=== PATIENT | female | born 1950 ===

== ENCOUNTER → 2023-07-22 12:38 | Outpatient (BNVA) | payer MEDICARE, MEDICAID, SELFPAY | PROVIDERS: Family Provider Family Medicine; PCP Family Medicine; Referring Provider Registered Nurse; Visit Provider Internal Medicine | DX: R07.9 Chest pain, unspecified (principal) | CPT/HCPCS: 93005; 99204 ==

== ENCOUNTER 2023-08-19 15:04 | Outpatient (CLI) | payer MEDICARE, MEDICAID, SELFPAY ==
--- NOTE | 2023-08-19 15:10 | USCV_ITS ---
Bernie Carlos Age: 72 Gender: F : 1950 Exam Date: 08/19/2023 15:19 Ordering Phys: Forrest Guy M.D ([email or web address]) Technologist: DILIP Exam Location: [facility] – [place] Indication: SOB BP: / HR: 87 Rhythm: Sinus Technical Quality: Poor secondary to COPD MEASUREMENTS (Male / Female) Normal Values 2D ECHO LV Diastolic Diameter PLAX 3.4 cm 4.2 - 5.9 / 3.9 - 5.3 cm LV Systolic Diameter PLAX 2.5 cm LV Chamber Size 2.0 cm IVS Diastolic Thickness 0.9 cm 0.6 - 1.0 / 0.6 - 0.9 cm IVS Systolic Thickness 1.1 cm LVPW Diastolic Thickness 1.7 cm 0.6 - 1.0 / 0.6 - 0.9 cm LVPW Systolic Thickness 1.3 cm RV Chamber Size 2.4 cm LVOT Diameter 2.0 cm LV Ejection Fraction 2D Teich 52.4 % LV Ejection Fraction MOD 2C 68.5 % LV Ejection Fraction 2C AL 69.0 % LA Diameter 1.1 cm LA Width 1.8 cm LA Height 2.6 cm RA Width 3.3 cm RA Height 2.6 cm Aorta at Sinotubular Diameter 3.3 cm IVC Diameter 2.0 cm M-MODE Aortic Annulus Diameter 2.8 cm LA Ao Ratio MM 0.0 MV E Point Septal Separation 0.6 cm DOPPLER AV Peak Velocity 130.3 cm/s LVOT Peak Velocity 87.0 cm/s AV Area Cont Eq vti 1.9 cm squared AV Area Cont Eq pk 2.1 cm squared MV Area PHT 5.6 cm squared Mitral E to A Ratio 1.0 MV E' Velocity 42.5 cm/s Mitral E to MV E' Ratio 12.3 Mitral E to LV E' Lateral Ratio 13.6 Mitral E to LV E' Septal Ratio 11.4 TR Peak Velocity 242.3 cm/s TR Peak Gradient 23.5 mmHg TR Mean Velocity 181.8 cm/s TR Mean Gradient 17.2 mmHg TR Velocity Time Integral 60.7 cm TV Peak E Velocity 76.3 cm/s Right Atrial Pressure 8.0 mmHg Pulmonary Artery Systolic Pressu 31.5 mmHg RV Acceleration Time 0.1 s RV Ejection Time 0.4 s RV AcT/ET 0.2 FINDINGS Left Ventricle Technically limited quality echocardiogram because of poor ultrasonic windows. LV systolic function is normal with EF of 55 to 60%. Regional wall motion abnormalities cannot accurately be assessed because of poor ultrasonic windows. Right Ventricle Grossly normal Right Atrium Grossly normal Left Atrium Grossly normal Mitral Valve Grossly normal Aortic Valve Not well-visualized. Tricuspid Valve Not well-visualized. Trace tricuspid regurgitation. Insufficient TR jet to calculate RVSP Pulmonic Valve Not well-visualized. Pericardium Not well-visualized. Aorta Grossly normal IVC Not well visualized CONCLUSIONS Technically limited quality echocardiogram because of poor ultrasonic windows. LV systolic function is normal with EF of 55 to 60%. Valvular structures are not well-visualized. No comparison studies are available. Forrest Guy MD (Electronically Signed) Final Date: 01 September 2023 10:21 S
== END 2023-08-19 15:05 | disposition home or self-care (01) ==
LOC: RAD 15:05
PROVIDERS: Family Provider Family Medicine; PCP Family Medicine; Visit Provider Internal Medicine
DX: R06.02 Shortness of breath (principal)
CPT/HCPCS: 93306

== ENCOUNTER 2023-08-27 15:16 | Outpatient (CLI) | payer MEDICARE, MEDICAID, SELFPAY ==
--- NOTE | 2023-08-27 15:30 | CTR_ITS ---
PROCEDURE INFORMATION: Exam: CTA Abdominal Aorta and Bilateral Lower Extremities (Run-off) With Contrast Exam date and time: 08/27/2023 3:50 PM Age: 72 years old Clinical indication: Patient HX: Leg pain x 3 years TECHNIQUE: Imaging protocol: Computed tomographic angiography of the of the abdominal aorta, pelvis and bilateral lower extremities with contrast. 3D rendering (Not supervised by radiologist): MIP and/or 3D reconstructed images were created by the technologist. Radiation optimization: All CT scans at this facility use at least one of these dose optimization techniques: automated exposure control; mA and/or kV adjustment per patient size (includes targeted exams where dose is matched to clinical indication); or iterative reconstruction. Contrast material: OMNI 350; Contrast volume: 190 ml; Contrast route: INTRAVENOUS (IV); COMPARISON: CR XR chest 1V [id number] 08/04/2018 2:45 PM RADIATION DOSE METRICS: Total DLP (mGy-cm): 2485.91 FINDINGS: Aorta: There are atherosclerotic changes in the abdominal aorta. The abdominal aorta is thrombosed beginning in the infrarenal abdominal aorta. The abdominal aorta tapers rapidly below this point and is calcified. This appears to represent longstanding chronic aortic occlusion. Celiac trunk and mesenteric arteries: There is mild stenosis of the mid superior mesenteric artery. Renal arteries: There is moderate stenosis of the origin of the left renal artery. Right iliac arteries: Right common iliac artery is small and calcified and chronically occluded. Proximal right external iliac artery is occluded. Distal right external iliac artery is supplied via the right inferior epigastric artery. Distal right internal iliac artery branches are small but patent, supplied by collateral flow. Right femoral/popliteal arteries: Right superficial femoral artery is small but patent. Right popliteal artery is small but patent throughout its length. Right infrapopliteal arteries: There is three-vessel runoff below the right knee in the right foot is supplied via a patent dorsalis pedis artery and a patent posterior tibial artery. Left iliac arteries: Left common iliac artery is chronically occluded. Proximal left external iliac artery is occluded. Distal left external iliac artery is supplied from collateral flow via the left inferior epigastric artery. Left femoral/popliteal arteries: Left superficial femoral artery is small but patent. Left popliteal artery is small but patent throughout its length. Left infrapopliteal arteries: There is three-vessel runoff below the left knee in the left foot is supplied via a patent dorsalis pedis artery and a patent posterior tibial artery. Liver: There is a diffuse decrease in hepatic parenchymal density, consistent with moderate fatty infiltration. There is a area of focal fatty change seen adjacent to the falciform ligament. Gallbladder and bile ducts: Multiple calcified gallstones are present. Gallbladder is collapsed. There is mild gallbladder wall thickening which is probably due to the contracted state of the gallbladder. There is no common bile duct dilation. Pancreas: The pancreas is normal. Spleen: The spleen is normal. Adrenal glands: The adrenal glands are normal. Kidneys and ureters: The kidneys are normal. There is no evidence of hydronephrosis. There is no evidence of renal or ureteral calcifications. Stomach and bowel: Moderate diverticulosis is present in the distal colon. There is some focal stranding adjacent to the distal descending colon such as on image number 295 of series 11 or 296 of series 5. This could represent some mild focal diverticulitis. Please correlate clinically. There is no evidence of intestinal obstruction. Appendix: Not identified Urinary bladder: Unremarkable. No mass. Reproductive: Unremarkable as visualized. Intraperitoneal space: There is no evidence of free intraperitoneal fluid. Lymph nodes: There is no evidence of lymphadenopathy. Bones/joints: There is moderate scoliosis lumbar spine concave to the right. The lumbar spine demonstrates moderate degenerative changes at multiple levels. There is no evidence of acute fracture. 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 CT/CT angio abd aorta runof [id number] IMPRESSION: 1. Possible diverticulitis 2. Fatty liver 3. 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 4. Moderate left renal artery stenosis 5. Mild superior mesenteric artery stenosis. COMMENTS: THIS REPORT CONTAINS FINDINGS THAT MAY BE CRITICAL TO PATIENT CARE. The findings were verbally communicated via telephone conference with EDILSON MOON at 5:39 PM STATISTICAL MACHINE SERVICER on 08/28/2023. The findings were acknowledged and understood.
[2023-08-27 15:45] LABS: Blood Urea Nitrogen 13 mg/dL (8-23); Glomerular Filtration Rate 70.9 mL/min (90-130)
[2023-08-27] MEDS: iohexol 350 mg/mL 500 mL Btl (per mL) IV (16:15)
== END 2023-08-27 15:17 | disposition home or self-care (01) ==
LOC: RAD 15:17
PROVIDERS: Family Provider Family Medicine; PCP Family Medicine; Visit Provider Internal Medicine
DX: M79.605 Pain in left leg (principal); M79.604 Pain in right leg; R93.3 Abnormal findings on diagnostic imaging of other parts of digestive tract; I74.09 Other arterial embolism and thrombosis of abdominal aorta; K76.0 Fatty (change of) liver, not elsewhere classified; K55.1 Chronic vascular disorders of intestine
CPT/HCPCS: 75635; 82565; 84520; Q9967

== ENCOUNTER 2024-08-05 16:44 | Emergency (ER) | payer MEDICARE, MEDICAID, SELFPAY ==
--- NOTE | 2024-08-05 16:50 | ECG_ITS ---
[email or web address] Date: 2024-08-05 Pat Name: Bernie Carlos Department: Room: Gender: Female Event Staff: : 1950 Requested By: Idania Burciaga Order Number: [id number] Laly MD: Forrest Guy M.D. Measurements Intervals [place] Rate: 87 P: 99 RI: 143 QRS: 128 QRSD: 81 T: 110 QT: 383 QTc: 463 Interpretive Statements SINUS RHYTHM WITH OCCASIONAL SUPRAVENTRICULAR PREMATURE COMPLEXES ARM LEADS REVERSED [INVERTED P AND QRS IN I] Compared to ECG 07/22/2023 12:48:03 No significant changes Electronically Signed On 08-06-2024 08:59:38 FAMILY CONSUMER SCIENCE TEACHER by Forrest Guy M.D. [email or web address]
[2024-08-05 16:52] VITALS: BP 174/89; PULSE 81; RESP 20; TEMP 36.4; O2SAT 91
--- NOTE | 2024-08-05 17:38 | XRR_ITS ---
PROCEDURE INFORMATION: Exam: XR Chest Exam date and time: 08/05/2024 6:21 PM Age: 73 years old Clinical indication: Chest wall pain and left-sided; Additional info: Left sided chest pains today. TECHNIQUE: Imaging protocol: Radiologic exam of the chest. Views: 1 view. COMPARISON: CR XR chest 1V [id number] 08/04/2018 2:45 PM FINDINGS: Lungs: Increased lung volumes. No lobar consolidation. Pleural spaces: Unremarkable. No pleural effusion. No pneumothorax. Heart/Mediastinum: Unremarkable. No cardiomegaly. Bones/joints: Unremarkable. XR/XR chest 1V portable [id number] IMPRESSION: As above.
[2024-08-05 18:33] LABS: Basophils % 0.4 %; Eosinophils # 0.1 10^3/uL (0.0-0.8); Eosinophils % 1.6 %; Hematocrit 47.6 % (36-47); Lymphocytes # 1.2 10^3/uL (0.8-4.8); Lymphocytes % 15.2 %; Mean Corpuscular HGB Conc 30.5 g/dL (30-55); Mean Corpuscular Hemoglobin 26.3 pg (27-33); Mean Corpuscular Volume 86.2 fl (85-98); Mean Platelet Volume 10.6 fL (7.4-10.4); Monocytes # 0.4 10^3/uL (0.2-0.9); Monocytes % 5.3 %; Neutrophils # 5.97 10^3/uL (1.8-7.7); Neutrophils % 77.1 %; Nucleated Red Blood Cells % 0 %; Platelet Count 273 10^3/cmm (157-399); Red Blood Count 5.52 10^6/uL (3.85-5.65); Red Cell Distribution Width 16.1 % (12.1-15.1); White Blood Count 7.74 10^3/uL (3.29-11.43)
[2024-08-05 18:52] LABS: Troponin(5th) Baseline 17 ng/L (0-10)
[2024-08-05 18:53] LABS: Alanine Aminotransferase 8 U/L (0-33); Albumin Level 4.5 g/dL (3.5-5.2); Alkaline Phosphatase 88 U/L (35-105); Anion Gap 18.7 (5-19); Aspartate Amino Transferase 13 U/L (0-32); Blood Urea Nitrogen 12 mg/dL (8-23); Calcium 9.8 mg/dL (8.5-10.5); Carbon Dioxide 27 mmol/L (22-29); Chloride 101 mmol/L (98-107); Creatinine Clr Calc Pharmacy 64.4608; Globulin 2.8 g/dL (1.3-4.6); Glucose 88 mg/dL (65-115); Lipase 19 U/L (13-60); Osmolality Calculated 295 mOsm/kg (285-295); Potassium 3.7 mmol/L (3.5-5.1); Sodium 143 mmol/L (136-145); Total Bilirubin 0.8 mg/dL (0.15-1.2); Total Protein 7.3 g/dL (6.6-8.7)
== END 2024-08-05 20:05 | disposition left against medical advice (07) ==
PROVIDERS: Emergency Medicine; Emergency Provider Family Medicine; PCP Family Medicine
DX: Z53.21 Procedure and treatment not carried out due to patient leaving prior to being seen by health care provider (principal)
CPT/HCPCS: 36415; 71045; 80053; 83690; 84484; 85025; 93005; 99285

== ENCOUNTER 2024-10-13 11:57 | Outpatient (CLI) | payer MEDICARE, MEDICAID, SELFPAY ==
--- NOTE | 2024-10-13 11:58 | USR_ITS ---
PROCEDURE INFORMATION: Exam: US Duplex Bilateral Lower Extremity Arteries Exam date and time: 10/13/2024 12:04 PM Age: 73 years old Clinical indication: Condition or disease; Peripheral vascular disease; Additional info: Peripheral vascular dz TECHNIQUE: Imaging protocol: Real-time ultrasound scan of the arteries of the bilateral lower extremities with 2-D guthrie scale, color Doppler flow and spectral waveform analysis. Images documented and saved. COMPARISON: CT angio abd aorta runof [id number] 08/27/2023 3:50 PM FINDINGS: All waveforms involving bilateral lower extremity arteries demonstrate a monophasic pattern with loss of normal diastolic flow reversal. Right common femoral artery: No occlusion or significant stenosis. Normal waveform. Right superficial femoral artery: No occlusion or significant stenosis. Normal waveform. Right popliteal artery: No occlusion or significant stenosis. Normal waveform. Right calf/foot arteries: No attempt to visualize the peroneal arteries. No occlusion or significant stenosis in the visualized arteries. Normal waveforms. Dorsalis pedis artery is patent. Ankle brachial index 0.7. Left common femoral artery: No occlusion or significant stenosis. Normal waveform. Left superficial femoral artery: No occlusion or significant stenosis. Normal waveform. Left popliteal artery: No occlusion or significant stenosis. Normal waveform. Left calf/foot arteries: No attempt to visualize the peroneal arteries. No occlusion or significant stenosis in the visualized arteries. Normal waveforms. Dorsalis pedis artery is patent. Ankle brachial index 0.7. US/CV arterial duplex [facility] [id number] IMPRESSION: No definite high-grade stenosis or occlusion. Loss of diastolic flow reversal with monophasic waveform.
== END 2024-10-13 11:58 | disposition home or self-care (01) ==
LOC: RAD 11:57
PROVIDERS: PCP Family Medicine; Visit Provider Registered Nurse
DX: I70.213 Atherosclerosis of native arteries of extremities with intermittent claudication, bilateral legs (principal)
CPT/HCPCS: 93925